=== PATIENT | female | born 1990 | race Caucasian/White ===

== ENCOUNTER 2020-05-13 04:49 | Emergency (ER) | payer BC ==
[2020-05-13 04:58] VITALS: TEMP 97.9
[2020-05-13] MEDS ORDERED: SODIUM CHLORIDE 0.9% 1,000 ML IV STA (05:06)
--- NOTE | 2020-05-13 05:07 | ED ---
Chest Pain HPI - General Chief Complaint: Chest Pain Stated Complaint: Chest Pain Time Seen by Provider: 05/13/20 04:52 Source: patient, family, RN notes reviewed, old records reviewed Mode of arrival: ambulatory - History of Present Illness Initial Comments: This is a 29-year-old female DF for evaluation patient is today for evaluation of chest pain patient is episodic chest pain and cough for a few months now. Had outpatient lab evaluation for possible abdominal Etiology. Patient the nonsmoker with no high blood pressure or cholesterol no diabetes. She has anterior chest pain, pain worse pain which she lays down, patient denying any travel history, no known significant sick contacts. No significant surgical history or medical history denies drugs or alcohol abuse. Patient does have a family history of heart disease patient is also experiencing Shortness of breath exertion. Patient does have current pain does admit to some shortness of breath and again symptoms are worse when she lies down MD Complaint: chest pain, other (sob) -: week(s) Onset: during rest, during exertion, awoke with symptoms Pain Location: epigastric Pain Radiation: back Severity: moderate Severity scale (1-10): 6 Quality: tightness, heaviness Consistency: intermittent Improves With: nothing Worsens With: exertion, inspiration, supine Context: recent illness Anginal Symptoms: diaphoresis, dyspnea Other Symptoms: cough Treatments Prior to Arrival: none - Related Data Home Medications Medication Instructions Recorded Confirmed Multivitamins, Thera [Multivitamin 1 tab PO DAILY 05/13/20 05/13/20 (formulary)] Turmeric Root Extract [Turmeric] 500 mg PO DAILY 05/13/20 05/13/20 Allergies Allergy/AdvReac Type Severity Reaction Status Date / Time No Known Allergies Allergy Verified 05/13/20 07:29 Review of Systems ROS Statement: Those systems with pertinent positive or pertinent negative responses have been documented in the HPI. ROS Other: All systems not noted in ROS Statement are negative. EKG Findings - EKG Comments: EKG Findings:: EKG is sinus rhythm 64 VA 150 QRS 82 QTC 406 Past Medical History Past Medical History: No Reported History History of Any Multi-Drug Resistant Organisms: None Reported Past Surgical History: No Surgical Hx Reported Past Psychological History: Anxiety Smoking Status: Never smoker Past Alcohol Use History: None Reported Past Drug Use History: None Reported General Exam General appearance: alert, in no apparent distress, anxious Head exam: Present: atraumatic, normocephalic, normal inspection Eye exam: Present: normal appearance, PERRL, EOMI. Absent: scleral icterus, conjunctival injection, periorbital swelling ENT exam: Present: normal exam, mucous membranes moist Neck exam: Present: normal inspection. Absent: tenderness, meningismus, lymphadenopathy Respiratory exam: Present: normal lung sounds bilaterally. Absent: respiratory distress, wheezes, rales, rhonchi, stridor Cardiovascular Exam: Present: regular rate, normal rhythm, normal heart sounds. Absent: systolic murmur, diastolic murmur, rubs, gallop, clicks GI/Abdominal exam: Present: soft, normal bowel sounds. Absent: distended, tenderness, guarding, rebound, rigid Extremities exam: Present: normal inspection, full ROM, normal capillary refill. Absent: tenderness, pedal edema, joint swelling, calf tenderness Back exam: Present: normal inspection Neurological exam: Present: alert, oriented X3, CN II-XII intact Psychiatric exam: Present: normal affect, normal mood Skin exam: Present: warm, dry, intact, normal color. Absent: rash Course Vital Signs 05/13/20 05/13/20 04:53 06:54 Temperature 97.9 F Pulse Rate 66 87 Respiratory 20 18 Rate Blood Pressure 153/85 130/78 O2 Sat by Pulse 100 98 Oximetry - Reevaluation(s) Reevaluation #1: Medical records reviewed Patient shortness of breath is significantly improved here in the emergency department arrest and comfortably currently Patient still complains of her main complaint is shortness of breath with laying flat Patient informed of results, questions answered feels good for discharge [facility] 29 [facility] DF for evaluation of chest pain. Chest pain has been going on for a few months no significant no-cost patient does have a CT of her chest which is negative here today. Patient will continue follow-up for further evaluation management Disposition Clinical Impression: Chest pain, Atypical chest pain Disposition: HOME SELF-CARE Condition: Good Instructions (If sedation given, give patient instructions): Chest Pain (ED) Is patient prescribed a controlled substance at d/c from ED?: No Referrals: Deya Dale MD [Primary Care Provider] - 1-2 days
[2020-05-13 05:32] LABS: Basophils % (A) 0 %; Eosinophils # (A) 0.1 k/uL (0-0.7); Eosinophils % (A) 2 %; HCT 42.9 % (34.0-46.0); HGB 14.4 gm/dL (11.4-16.0); Lymphocytes # (A) 1.9 k/uL (1.0-4.8); Lymphocytes % (A) 31 %; MCH 28.2 pg (25.0-35.0); MCHC 33.5 g/dL (31.0-37.0); MCV 84.1 fL (80.0-100.0); Mean Platelet Volume 9.5; Monocytes # (A) 0.5 k/uL (0-1.0); Monocytes % (A) 8 %; Neutrophils # (A) 3.4 k/uL (1.3-7.7); Neutrophils % (A) 57 %; Platelet Count 158 k/uL (150-450); RDW 12.9 % (11.5-15.5); WBC 5.9 k/uL (3.8-10.6)
[2020-05-13 05:40] LABS: ALT 13 U/L (4-34); AST 23 U/L (14-36); African American GFR (CKD) >90 (>60 ml/min/1.73 sqM); Albumin 4.4 g/dL (3.5-5.0); Alkaline Phosphatase 95 U/L (38-126); Anion Gap 5 mmol/L; Blood Urea Nitrogen 12 mg/dL (7-17); Calcium 9.3 mg/dL (8.4-10.2); Carbon Dioxide 27 mmol/L (22-30); Chloride 106 mmol/L (98-107); Creatine Kinase 72 U/L (30-135); Glucose 96 mg/dL (74-99); Magnesium 2.1 mg/dL (1.6-2.3); Non-African American GFR(CKD) >90 (>60 ml/min/1.73 sqM); Potassium 3.7 mmol/L (3.5-5.1); Sodium 138 mmol/L (137-145); Total Bilirubin 0.3 mg/dL (0.2-1.3); Total Protein 7.2 g/dL (6.3-8.2)
[2020-05-13 05:52] LABS: D-Dimer 0.28 mg/L FEU (<0.60); INR 0.9 (<1.2); Partial Thromboplastin Time 23.3 sec (22.0-30.0); Prothrombin Time 9.8 sec (9.0-12.0)
[2020-05-13 06:04] LABS: Creatine Kinase MB 0.4 ng/mL (0.0-2.4); Troponin I <0.012 ng/mL (0.000-0.034)
[2020-05-13 06:55] VITALS: BP 130/78; PULSE 87; RESP 18
--- NOTE | 2020-05-13 07:50 | CT ---
EXAM: CT Angiography Chest With Intravenous Contrast CLINICAL HISTORY: PE. Chest pressure. Cough. TECHNIQUE: Axial computed tomographic angiography images of the chest with intravenous contrast. CTDI is 14.17 mGy and DLP is 294.6 mGy-cm. This CT exam was performed using one or more of the following dose reduction techniques: automated exposure control, adjustment of the mA and/or kV according to patient size, and/or use of iterative reconstruction technique. MIP reconstructed images were created and reviewed. COMPARISON: No relevant prior studies available. FINDINGS: Pulmonary arteries: Unremarkable. No pulmonary embolism. Aorta: No acute findings. Lungs: Unremarkable. No mass. No consolidation. Pleural space: Unremarkable. No significant effusion. No pneumothorax. Heart: Unremarkable. No cardiomegaly. No significant pericardial effusion. Bones/joints: No acute fracture. No dislocation. Soft tissues: Unremarkable. Lymph nodes: Unremarkable. No enlarged lymph nodes. IMPRESSION: No PE. No focal consolidative process or pleural effusions. No CT evidence of Covid-19 infection.
== END 2020-05-13 08:10 | disposition home or self-care (01) ==
LOC: EC 04:49
DX: R07.89 Other chest pain (principal); R06.02 Shortness of breath; R05 Cough; Z82.49 Family history of ischemic heart disease and other diseases of the circulatory system
CPT/HCPCS: 36415; 93005; 85379; 83880; 80053; 82550; 82553; 83735; 84484; 85025; 85610; 85730; 71275; 99285; 96360; 96361 ×2; Q9967

== ENCOUNTER 2023-05-26 05:59 | Inpatient (IN) | payer OTHER ==
[2023-05-26] MEDS ORDERED: CARBOPROST TROMETHAMINE 250 MCG/ML 1 ML AMP IM PRN (06:18)
[2023-05-26] MEDS ORDERED: LIDOCAINE 0.5% (PF) 5 MG/ML (50 ML SDV) SQ PRN (06:18)
[2023-05-26] MEDS ORDERED: OXYTOCIN 10 UNIT/ML 1 ML VIAL IM PRN (06:18)
[2023-05-26] MEDS ORDERED: METHYLERGONOVINE 0.2 MG/ML 1 ML AMP IM PRN (06:18)
[2023-05-26] MEDS ORDERED: TERBUTALINE 1 MG/ML VIAL SQ PRN (06:18)
[2023-05-26] MEDS ORDERED: miSOPROStoL 200 MCG TAB PO PRN (06:18)
[2023-05-26] MEDS ORDERED: TRANEXAMIC 1,000 MG/100ML-NACL 1,000 MG in EMPTY BAG 1 BAG IV PRN (06:18)
[2023-05-26] MEDS: LACTATED RINGERS 1,000 ML IV SCH ×2 (06:23→19:55)
[2023-05-26 06:37] LABS: Basophils % (A) 0 %; Eosinophils # (A) 0.1 k/uL (0-0.7); Eosinophils % (A) 1 %; HCT 36.8 % (34.0-46.0); HGB 12.6 gm/dL (11.4-16.0); Lymphocytes # (A) 1.3 k/uL (1.0-4.8); Lymphocytes % (A) 13 %; MCH 29.4 pg (25.0-35.0); MCHC 34.3 g/dL (31.0-37.0); MCV 85.8 fL (80.0-100.0); Mean Platelet Volume 10.8; Monocytes # (A) 0.7 k/uL (0-1.0); Monocytes % (A) 7 %; Neutrophils # (A) 7.8 k/uL (1.3-7.7); Neutrophils % (A) 78 %; Platelet Count 116 k/uL (150-450); RBC 4.29 m/uL (3.80-5.40); RDW 14.3 % (11.5-15.5)
[2023-05-26] MEDS: OXYTOCIN 30 UNITS/500 ML NS 30 UNIT in SALINE 1 500ML.BAG IV SCH ×2 (06:40→20:18)
[2023-05-26] MEDS ORDERED: ROPIVACAINE 5 MG/ML 30 ML VIAL ONE (14:32)
[2023-05-26] MEDS ORDERED: SODIUM CHLORIDE 0.9% 250 ML BAG ONE (14:32)
[2023-05-26] MEDS ORDERED: fentaNYL (PF) 50 MCG/ML 5 ML AMP ONE (14:32)
[2023-05-26] MEDS ORDERED: diphenhydrAMINE 50 MG CAP PO PRN (18:31)
[2023-05-26] MEDS ORDERED: BENZOCAINE/MENTHOL SPRAY 1 GM/SPRAY AEROSOL TOPICAL PRN (18:31)
[2023-05-26] MEDS ORDERED: ACETAMINOPHEN TAB 325 MG TAB PO PRN (18:31)
[2023-05-26] MEDS ORDERED: diphenhydrAMINE 25 MG CAP PO PRN (18:31)
[2023-05-26] MEDS ORDERED: ZOLPIDEM 5 MG TAB PO PRN (18:31)
[2023-05-26] MEDS ORDERED: HYDROCORTISONE 2.5% RECTAL CREAM 30 GM TUBE RECTAL PRN (18:31)
[2023-05-26] MEDS ORDERED: diphenhydrAMINE 50 MG/ML 1 ML VIAL IVP PRN ×2 (18:31)
[2023-05-26] MEDS ORDERED: LANOLIN CREAM 5 GM TUBE TOPICAL PRN (18:31)
[2023-05-26] MEDS ORDERED: SIMETHICONE 80 MG CHEWABLE PO PRN (18:31)
[2023-05-26 18:36] VITALS: RESP 16
--- NOTE | 2023-05-26 18:43 | P.PROBDLV ---
Vaginal Delivery Note - . Vaginal Delivery Note: The patient is a [32]-year-old [2], para [1001] admitted at [39 2/7 ] weeks by good dating parameters. She is admitted [for induction of labor secondary to SGA] with all signs reassuring. On labor and delivery, she made very good progress to complete and [+1] station and began pushing. She had a normal spontaneous vaginal delivery of a viable [6 pound 12 ounce] baby [girl] with scores of [8] at one minute and [9] at five minutes, delivered in the [direct occiput anterior position]. Loose nuchal x 2 was delivered through the placenta was delivered spontaneously intact and was grossly normal with a grossly normal [eccentrically] inserted 3 vessel cord. [A first- degree midline laceration was noted after delivery and was repaired in standard fashion using 3-0 Vicryl repeat without difficulty.] Estimated blood loss for the case was approximately [100] mL. The bladder was drained for approximately 300 cc of clear yellow urine. There were no complications. All sponge, instrument and needle counts were correct. Both mother and infant are resting comfortably in recovery. Findings viable male delivered at 181, weight of 6 pounds 15 ounces
--- NOTE | 2023-05-26 18:44 | P.HPOB ---
History of Present Illness H&P Date: 05/26/23 Chief Complaint: IUP at 39 weeks, SGA 32-year-old at 39 weeks of that presents for induction of labor secondary to small for gestational age. On last ultrasound estimated weight was 15th percentile at 36 weeks. Patient has had routine prenat al care otherwise. This morning patient notes good movement occasional contractions denies vaginal bleeding or loss of fluid. On blood work this patient notes a blood type of O+, rubella status immune, hepatitis B surface engine negative, HIV negative, RPR is nonreactive, group B strep culture was negative. Patient did have noted gestational thrombocytopenia with this and platelets upon initial draw this morning were 116. 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 History of Any Multi-Drug Resistant Organisms: None Reported Past Surgical History: No Surgical Hx Reported Past Anesthesia/Blood Transfusion Reactions: No Reported Reaction Past Psychological History: Anxiety, Depression Additional Psychological History / Comment(s): PPD/PPA Smoking Status: Never smoker Past Alcohol Use History: None Reported Past Drug Use History: None Reported - Past Family History Father Family Medical History: No Reported History Medications and Allergies Home Medications Medication Instructions Recorded Confirmed Type Pnv No.154/Iron Fum/Folic Acid 1 capsule PO DAILY 05/26/23 05/26/23 History [ Plus Vitamin Tablet] Sennosides-Docusate Sodium 2 tablet PO DAILY 05/26/23 05/26/23 History [Senokot-S] methylPREDNISolone [Medrol Dose 4 mg PO DAILY 05/26/23 05/26/23 History Pack] Allergies Allergy/AdvReac Type Severity Reaction Status Date / Time No Known Allergies Allergy Verified 05/26/23 06:15 Exam Osteopathic Statement: *. No significant issues noted on an osteopathic structural exam other than those noted in the History and Physical/Consult. Vital Signs Temp Pulse Resp BP Pulse Ox 05/26/23 06:15 97.0 F L 97 17 143/82 97 Intake and Output 05/25/23 05/26/23 05/26/23 22:59 06:59 14:59 Other: Weight 93.44 kg Targeted physical exam is performed this date General is a well-nourished well- developed female in no acute distress, breathing is noted to be nonlabored, heart has a regular rate and rhythm, abdomen is gravid and appropriate for gestational age, on cervical exam she is 1/thick/-3 amniotomy is performed and thin meconium stained fluid is appreciated. heart tones are noted to be category 1 and she is [place] irregularly. Results Result Diagrams: 05/26/23 06:25 Abnormal Lab Results - Last 24 Hours (Table) 05/26/23 Range/Units 06:25 Plt Count 116 L (150-450) k/uL Neutrophils # 7.8 H (1.3-7.7) k/uL Assessment and Plan (1) 39 weeks gestation of Current Visit: Yes Status: Acute Code(s): Z3A.39 - 39 WEEKS GESTATION OF SNOMED Code(s): 56631933 (2) SGA (small for gestational age), , affecting care of mother, antepartum Current Visit: Yes Status: Acute Code(s): O36.5990 - MATERN CARE FOR OTH OR SUSP POOR FETL GRTH, UNSP TRI, UNSP SNOMED Code(s): 604942729 Plan: 32-year-old at 39 weeks of gestation presents for induction of labor. Pitocin induction of labor was begun per hospital protocol. Options for analgesia are discussed including Nubain and epidural. Patient does desire epidural when appropriate.
[2023-05-26] MEDS ORDERED: OXYTOCIN 30 UNITS/500 ML NS 30 UNIT in SALINE 1 500ML.BAG IV SCH (18:45)
[2023-05-26] MEDS: IBUPROFEN 600 MG TAB PO SCH ×2 (18:45→22:35)
[2023-05-26] MEDS: SENNOSIDES-DOCUSATE SODIUM 1 EACH TAB PO SCH (20:23)
[2023-05-27 07:34] VITALS: TEMP 97.9
[2023-05-27 07:35] LABS: Basophils % (A) 0 %; Eosinophils # (A) 0.1 k/uL (0-0.7); Eosinophils % (A) 1 %; HGB 11.8 gm/dL (11.4-16.0); Lymphocytes # (A) 1.5 k/uL (1.0-4.8); Lymphocytes % (A) 12 %; MCHC 33.8 g/dL (31.0-37.0); Mean Platelet Volume 10.8; Monocytes # (A) 0.9 k/uL (0-1.0); Monocytes % (A) 7 %; Neutrophils # (A) 9.4 k/uL (1.3-7.7); Neutrophils % (A) 77 %; Platelet Count 100 k/uL (150-450); RBC 4.07 m/uL (3.80-5.40); RDW 14.5 % (11.5-15.5); WBC 12.2 k/uL (3.8-10.6)
[2023-05-27] MEDS: SENNOSIDES-DOCUSATE SODIUM 1 EACH TAB PO SCH (08:24)
[2023-05-27] MEDS: IBUPROFEN 600 MG TAB PO SCH ×2 (08:24→15:46)
[2023-05-27] MEDS ORDERED: PRENATAL VIT-IRON-FOLIC ACID 1 EACH TABLET PO SCH (09:00)
[2023-05-27] MEDS ORDERED: SENNOSIDES-DOCUSATE SODIUM 1 EACH TAB PO SCH (09:00)
--- NOTE | 2023-05-27 11:47 | P.DS ---
Providers Date of admission: 05/26/23 05:59 Expected date of discharge: 05/27/23 Attending physician: Ernestina Toney Primary care physician: Stated None - Discharge Diagnosis(es) (1) 39 weeks gestation of Current Visit: Yes Status: Acute (2) SGA (small for gestational age), , affecting care of mother, antepartum Current Visit: Yes Status: Acute (3) Status post normal vaginal delivery Current Visit: Yes Status: Acute (4) Obstetrical laceration, first degree Current Visit: Yes Status: Acute Hospital Course: 32-year-old G2 now P2 that presented to labor and delivery at 39 2/7 weeks for induction of labor secondary to SGA. Patient had been receiving routine care with the only complication noted of SGA. On last ultrasound was noted to be 15th percentile. Patient was admitted to labor and delivery and Pitocin induction of labor was begun. Patient underwent amniotomy and thin meconium stained fluid was appreciated. Patient made slow progress through labor and eventually noting cervical change and requesting epidural. Epidural was placed without difficulty by the anesthesia department. Patient made both good progress toward complete. Once patient was noted to be completely dilated she began pushing and had a normal spontaneous vaginal delivery of a viable male delivered at 181, weight of 6 pounds 15 ounces. Patient's course has been uneventful. On this day #1 she is ambulating and voiding without difficulty. She is tolerating a regular diet without nausea or vomiting. She states her pain is well-controlled. She is tearful this morning depression is discussed with patient in detail. Questions were answered. Patient states she is doing okay. Patient Condition at Discharge: Good Plan - Discharge Summary New Discharge Prescriptions: No Action methylPREDNISolone [Medrol Dose Pack] 4 mg PO DAILY Sennosides-Docusate Sodium [Senokot-S] 2 tablet PO DAILY Pnv No.154/Iron Fum/Folic Acid [ Plus Vitamin Tablet] 1 capsule PO DAILY Discharge Medication List Pnv No.154/Iron Fum/Folic Acid [ Plus Vitamin Tablet] 1 capsule PO DAILY 05/26/23 [History] Sennosides-Docusate Sodium [Senokot-S] 2 tablet PO DAILY 05/26/23 [History] methylPREDNISolone [Medrol Dose Pack] 4 mg PO DAILY 05/26/23 [History] Follow up Appointment(s)/Referral(s): Ernestina Toney DO [Doctor of Osteopathic Medicine] - 6 Weeks Patient Instructions/Handouts: Vaginal Delivery (DC), Vaginal Delivery (GEN) Activity/Diet/Wound Care/Special Instructions: No tub baths or intercourse until 6 weeks . depression screening/concerns are discussed with patient and she states she will call with any concerns. Patient is urged to reach out with concerns and be seen in the office. Routine visit is to be scheduled at 6 weeks. Rzjc-vnc-ejqroyh ibuprofen 600 mg or 3 tablets every 6 hours as needed for pain. Discharge Disposition: HOME SELF-CARE
[2023-05-27 15:47] VITALS: BP 123/79; PULSE 76
== END 2023-05-27 18:53 | disposition home or self-care (01) | DRG 806 ==
LOC: 4FBP 05:59
PROVIDERS: ADMIT Obstetrics & Gynecology Obstetrics; ATTEND Obstetrics & Gynecology Obstetrics
PROC: 0HQ9XZZ Repair Perineum Skin, External Approach (ICD-10-PCS; principal; 2023-05-26)
PROC: 10E0XZZ Delivery of Products of Conception, External Approach (ICD-10-PCS; principal; 2023-05-26)
PROC: 10907ZC Drainage of Amniotic Fluid, Therapeutic from Products of Conception, Via Natural or Artificial Opening (ICD-10-PCS; 2023-05-26)
PROC: 3E033VJ Introduction of Other Hormone into Peripheral Vein, Percutaneous Approach (ICD-10-PCS; 2023-05-26)
DX: O36.5930 Maternal care for other known or suspected poor fetal growth, third trimester, not applicable or unspecified (principal); O99.12 Other diseases of the blood and blood-forming organs and certain disorders involving the immune mechanism complicating childbirth; Z37.0 Single live birth; D69.59 Other secondary thrombocytopenia; O99.344 Other mental disorders complicating childbirth; O99.345 Other mental disorders complicating the puerperium; F53.0 Postpartum depression; Z28.310 Unvaccinated for COVID-19; F41.9 Anxiety disorder, unspecified; O69.81X0 Labor and delivery complicated by cord around neck, without compression, not applicable or unspecified; O70.0 First degree perineal laceration during delivery; O77.0 Labor and delivery complicated by meconium in amniotic fluid; Z3A.39 39 weeks gestation of pregnancy; Z79.899 Other long term (current) drug therapy
CPT/HCPCS: 85025; 86850; 86900; 86901

== ENCOUNTER 2024-05-25 15:47 | Emergency (ER) | payer OTHER ==
--- NOTE | 2024-05-25 16:16 | ED ---
Back Pain HPI - General Chief Complaint: Back Pain/Injury Stated Complaint: back pain Time Seen by Provider: 05/25/24 16:15 Source: patient, RN notes reviewed Limitations: no limitations - History of Present Illness Initial Comments: This is a 33-year-old female no significant medical history presenting to the emergency department for complaint of lumbar back pain. She states that last Thursday patient was outside when she slipped on the ice landing onto her lower back. She denies hitting her head or loss of consciousness at the time of the injury or other injuries. States that over the past few days her symptoms have gotten better however last night symptoms over her lower back worsened with radiation into the right anterior groin described as a sharp sensation. She d enies any loss of bladder bowel continence or saddle seizures after the injury. States that she has taken Aleve today with minimal relief. MD Complaint: fall -: days(s) - Related Data Home Medications Medication Instructions Recorded Confirmed Pnv No.154/Iron Fum/Folic Acid 1 capsule PO DAILY 05/26/23 05/26/23 [ Plus Vitamin Tablet] Sennosides-Docusate Sodium 2 tablet PO DAILY 05/26/23 05/26/23 [Senokot-S] methylPREDNISolone [Medrol Dose 4 mg PO DAILY 05/26/23 05/26/23 Pack] Previous Rx's Medication Instructions Recorded Lidocaine 5% Patch [Lidoderm] 1 patch TOPICAL DAILY #14 patch 05/25/24 Allergies Allergy/AdvReac Type Severity Reaction Status Date / Time No Known Allergies Allergy Verified 05/25/24 15:53 Review of Systems ROS Statement: Those systems with pertinent positive or pertinent negative responses have been documented in the HPI. ROS Other: All systems not noted in ROS Statement are negative. 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 Absent: tenderness, meningismus, lymphadenopathy Respiratory exam: Present: normal lung sounds bilaterally. Absent: respiratory distress, wheezes, rales, rhonchi, stridor Cardiovascular Exam: Present: regular rate, normal rhythm, normal heart sounds. Absent: systolic murmur, diastolic murmur, rubs, gallop, clicks GI/Abdominal exam: Present: soft, normal bowel sounds. Absent: distended, tenderness, guarding, rebound, rigid Back exam: Present: normal inspection, tenderness (lumbar mid back and lateral right to palpation with no overlying skin changes). Absent: full ROM, CVA tenderness (R), CVA tenderness (L) Neurological exam: Present: alert, oriented X3, CN II-XII intact Course Vital Signs 05/25/24 15:50 Temperature 98.1 F Pulse Rate 92 Respiratory 16 Rate Blood Pressure 165/110 O2 Sat by Pulse 95 Oximetry Medical Decision Making - Medical Decision Making Was pt. sent in by a medical professional or institution (, PA, REAL ESTATE LOAN OFFICER, urgent care, hospital, or long-term...) When possible be specific @ -No Did you speak to anyone other than the patient for history (EMS, parent, family, police, friend...)? What history was obtained from this source @ -No Did you review nursing and triage notes (agree or disagree)? Why? @ -I reviewed and agree with nursing and triage notes Were old charts reviewed (outside hosp., previous admission, EMS record, old EKG, old radiological studies, urgent care reports/EKG's, long-term records)? Report findings @ -No old charts were reviewed Differential Diagnosis (chest pain, altered mental status, abdominal pain women, abdominal pain men, vaginal bleeding, weakness, fever, dyspnea, syncope, headache, dizziness, GI bleed, back pain, seizure, CVA, palpatations, mental health, musculoskeletal)? @ -Differential Back Pain: Strain, zoster, cauda equina syndrome, epidural abscess, vertebral osteomyelitis, discitis, fracture, subluxation, disc herniation, DJD, spinal stenosis, dissection, AAA, pancreatitis, peptic ulcer disease, pyelonephritis, kidney stone, this is not meant to be an all-inclusive list. EKG interpreted by me (3pts min.). @ -None X-rays interpreted by me (1pt min.). @ -X-ray of the lumbar spine and AP pelvis no acute osseous abnormality CT interpreted by me (1pt min.). @ -None done U/S interpreted by me (1pt. min.). @ -None done What testing was considered but not performed or refused? (CT, X-rays, U/S, labs)? Why? @ -None What meds were considered but not given or refused? Why? @ -None Did you discuss the management of the patient with other professionals (professionals i.e. DrDoug, PA, REAL ESTATE LOAN OFFICER, lab, RT, psych nurse, social contact worker, mica parts sprayer, teacher, sewage reticulation drafting officer, correctional counselor/case manager)? Give summary @ -No Was smoking cessation discussed for >3mins.? @ -No Was critical care preformed (if so, how long)? @ -No Were there social determinants of health that impacted care today? How? (Homelessness, low income, unemployed, alcoholism, drug addiction, transportation, low edu. Level, literacy, decrease access to med. care, longterm, rehab)? @ -No Was there de-escalation of care discussed even if they declined (Discuss DNR or withdrawal of care, Hospice)? DNR status @ -No What co-morbidities impacted this encounter? (DM, HTN, Smoking, COPD, CAD, Cancer, CVA, ARF, Chemo, Hep., AIDS, mental health diagnosis, sleep apnea, morbid obesity)? @ -None Was patient admitted / discharged? Hospital course, mention meds given and route, prescriptions, significant lab abnormalities, going to OR and other pertinent info. @ -Discharge. 33-year-old male with a lumbar back pain. Evaluation patient is resting in a wheelchair no signs acute distress. On evaluation to no point tenderness of the lumbar spine lateral on the right-hand side with no overlying skin changes. There is radiation of pain spreading laterally over the anterior right hip. There are no red flag findings concerning for cauda equina. Patient is provided with dose of Tylenol. X-ray lumbar spine and AP pelvis no acute abnormality is noted. Patient has a prescription for lidocaine patches instructed continue Tylenol Motrin and supportive treatment at home. Case discussed with Dr. Crawley Undiagnosed new problem with uncertain prognosis? @ -No Drug Therapy requiring intensive monitoring for toxicity (Heparin, Nitro, Insulin, Cardizem)? @ -No Were any procedures done? @ -No Diagnosis/symptom? @ -Fall, lumbar back pain Acute, or Chronic, or Acute on Chronic? @ -acute Uncomplicated (without systemic symptoms) or Complicated (systemic symptoms)? @ -uncomplicated Side effects of treatment? @ -No Exacerbation, Progression, or Severe Exacerbation? @ -No Poses a threat to life or bodily function? How? (Chest pain, [place], HI, pneumonia, PE, COPD, DKA, ARF, appy, cholecystitis, CVA, Diverticulitis, Homicidal, Suicidal, threat to staff... and all critical care pts) @ -No Disposition Clinical Impression: Lumbar back pain Disposition: HOME SELF-CARE Condition: Good Instructions (If sedation given, give patient instructions): Acute Low Back Pain (ED) Additional Instructions: Please return to the Emergency Department if symptoms worsen or any other concerns. Prescriptions: Lidocaine 5% Patch [Lidoderm] 1 patch TOPICAL DAILY #14 patch Is patient prescribed a controlled substance at d/c from ED?: No Referrals: Deya Dale MD [Primary Care Provider] - 1-2 days Time of Disposition: 17:09
[2024-05-25] MEDS: ACETAMINOPHEN TAB 500 MG TAB PO STA (16:49)
--- NOTE | 2024-05-25 16:49 | XR ---
EXAMINATION TYPE: XR pelvis AP view DATE OF EXAM: 05/25/2024 4:41 PM INDICATION: Patient age:Female; 33 years old; Reason for study: fall, pain; PHH. pain COMPARISON: None TECHNIQUE: The pelvis was examined in a single projection. FINDINGS: There is no evidence of fracture or dislocation. There is no soft tissue abnormality. No a bnormal calcifications are present. IMPRESSION: No acute osseous pathology. [facility], , 05/25/2024 4:47 PM
[2024-05-25] MEDS: LIDOCAINE 4% PATCH TOPICAL ONE (16:50)
--- NOTE | 2024-05-25 16:50 | XR ---
EXAMINATION TYPE: XR lumbar spine 2 or 3V DATE OF EXAM: 05/25/2024 CLINICAL HISTORY: pain TECHNIQUE: Three views of the lumbar spine are submitted. COMPARISON: None. FINDINGS: There are 5 lumbar type vertebral bodies identified. The lumbar spine shows satisfactory alignment w ithout evidence of acute fracture or dislocation. Vertebral body heights are within normal limits. Disc spaces are within normal limits. The overlying soft tissue appears unremarkable. IMPRESSION: No acute fracture or dislocation is seen in the lumbar spine. [facility], , 05/25/2024 4:47 PM
[2024-05-25 17:21] VITALS: BP 146/89; PULSE 86; RESP 18; TEMP 98
== END 2024-05-25 17:20 | disposition home or self-care (01) ==
LOC: EC 15:47
DX: M54.50 Low back pain, unspecified (principal); W00.0XXA Fall on same level due to ice and snow, initial encounter
CPT/HCPCS: 72100; 72170; 99283

== ENCOUNTER 2024-11-06 13:16 | Emergency (ER) | payer OTHER ==
[2024-11-06 13:33] VITALS: BP 136/87; PULSE 98; RESP 18; TEMP 98
--- NOTE | 2024-11-06 15:40 | ED ---
General Adult HPI - General Chief complaint: Recheck/Abnormal Lab/Rx Stated complaint: R eye swelling Time Seen by Provider: 11/06/24 15:40 Source: patient, RN notes reviewed Mode of arrival: ambulatory Limitations: no limitations - History of Present Illness Initial comments: 34-year-old female presenting for right eye swelling x 2 days. States she was diagnosed with chalazion and placed on Keflex and erythromycin ointment. Patient is currently breast-feeding. States she woke up today with a worsening swelling and a red rash behind both knees, thighs and on the ventral aspect of the left elbow. States she has history of Sjogren's and is in the process of being diagnosed with lupus. Denies fevers. No vision changes. No difficulty breathing or swallowing. No lip or tongue swelling. - Related Data Home Medications Medication Instructions Recorded Confirmed Pnv No.154/Iron Fum/Folic Acid 1 capsule PO DAILY 05/26/23 05/26/23 [ Plus Vitamin Tablet] Sennosides-Docusate Sodium 2 tablet PO DAILY 05/26/23 05/26/23 [Senokot-S] methylPREDNISolone [Medrol Dose 4 mg PO DAILY 05/26/23 05/26/23 Pack] Previous Rx's Medication Instructions Recorded Lidocaine 5% Patch [Lidoderm] 1 patch TOPICAL DAILY #14 patch 05/25/24 Allergies Allergy/AdvReac Type Severity Reaction Status Date / Time No Known Allergies Allergy Verified 11/06/24 13:33 Review of Systems ROS Statement: Those systems with pertinent positive or pertinent negative responses have been documented in the HPI. ROS Other: All systems not noted in ROS Statement are negative. Past Medical History Past Medical History: No Reported History Additional Past Medical History / Comment(s): low platelets History of Any Multi-Drug Resistant Organisms: None Reported Past Surgical History: No Surgical Hx Reported Past Anesthesia/Blood Transfusion Reactions: No Reported Reaction Past Psychological History: Anxiety, Depression Smoking Status: Never smoker Past Alcohol Use History: None Reported Past Drug Use History: None Reported - Past Family History Father Family Medical History: No Reported History General Exam Limitations: no limitations General appearance: alert, in no apparent distress Head exam: Present: atraumatic, normocephalic, normal inspection Eye exam: Present: PERRL, EOMI. Absent: normal appearance (Mild right-sided periorbital edema and erythema. Scant amount of purulence in right inner canthus. No proptosis or conjunctival injection), scleral icterus, conjunctival injection, periorbital swelling ENT exam: Present: normal exam, mucous membranes moist Neck exam: Present: normal inspection. Absent: tenderness, meningismus, lymphadenopathy Respiratory exam: Present: normal lung sounds bilaterally. Absent: respiratory distress, wheezes, rales, rhonchi, stridor Cardiovascular Exam: Present: regular rate, normal rhythm, normal heart sounds. Absent: systolic murmur, diastolic murmur, rubs, gallop, clicks Course Vital Signs 11/06/24 13:29 Temperature 98 F Pulse Rate 98 Respiratory 18 Rate Blood Pressure 136/87 O2 Sat by Pulse 95 Oximetry Medical Decision Making - Medical Decision Making Was pt. sent in by a medical professional or institution (, PA, NETWORK LIAISON, urgent care, hospital, or detention...) When possible be specific @ -Sent from urgent care Did you speak to anyone other than the patient for history (EMS, parent, family, police, friend...)? What history was obtained from this source @ -No Did you review nursing and triage notes (agree or disagree)? Why? @ -I reviewed and agree with nursing and triage notes Were old charts reviewed (outside hosp., previous admission, EMS record, old EKG, old radiological studies, urgent care reports/EKG's, detention records)? Report findings @ -No old charts were reviewed Differential Diagnosis (chest pain, altered mental status, abdominal pain women, abdominal pain men, vaginal bleeding, weakness, fever, dyspnea, syncope, headache, dizziness, GI bleed, back pain, seizure, CVA, palpatations, mental health, musculoskeletal)? @ -Periorbital cellulitis, orbital cellulitis, conjunctivitis, allergic reaction, contact dermatitis EKG interpreted by me (3pts min.). @ -None X-rays interpreted by me (1pt min.). @ -None done CT interpreted by me (1pt min.). @ -None done U/S interpreted by me (1pt. min.). @ -None done What testing was considered but not performed or refused? (CT, X-rays, U/S, labs)? Why? @ -None What meds were considered but not given or refused? Why? @ -None Did you discuss the management of the patient with other professionals (professionals i.e. , PA, NETWORK LIAISON, lab, RT, psych nurse, social studies department chair, material coordinator, teacher, parcel post officer, complex case manager)? Give summary @ -No Was smoking cessation discussed for >3mins.? @ -No Was critical care preformed (if so, how long)? @ -No Were there social determinants of health that impacted care today? How? (Homelessness, low income, unemployed, alcoholism, drug addiction, transportation, low edu. Level, literacy, decrease access to med. care, [facility], rehab)? @ -No Was there de-escalation of care discussed even if they declined (Discuss DNR or withdrawal of care, Hospice)? DNR status @ -No What co-morbidities impacted this encounter? (DM, HTN, Smoking, COPD, CAD, Cancer, CVA, ARF, Chemo, Hep., AIDS, mental health diagnosis, sleep apnea, morbid obesity)? @ -None Was patient admitted / discharged? Hospital course, mention meds given and route, prescriptions, significant lab abnormalities, going to OR and other pertinent info. @ -Discharge. 34-year-old female presenting for right eye swelling x 2 days. There is mild periorbital edema and erythema to right eye. No proptosis or direct eye redness/pain. Patient does have diffuse raised erythematous plaques throughout the body. Patient was provided with dose of IV Benadryl. Lab work unremarkable. Advised to continue Keflex as prescribed and take [id number] Benadryl. Appropriate return precautions and supportive care/follow-up care discussed. Case was discussed with my ED attending Dr. Crawley Undiagnosed new problem with uncertain prognosis? @ -No Drug Therapy requiring intensive monitoring for toxicity (Heparin, Nitro, Insuli n, Cardizem)? @ -No Were any procedures done? @ -No Diagnosis/symptom? @ -Right periorbital cellulitis Acute, or Chronic, or Acute on Chronic? @ -Acute Uncomplicated (without systemic symptoms) or Complicated (systemic symptoms)? @ -Uncomplicated Side effects of treatment? @ -No Exacerbation, Progression, or Severe Exacerbation? @ -No Poses a threat to life or bodily function? How? (Chest pain, [place], CA, pneumonia, PE, COPD, DKA, ARF, appy, cholecystitis, CVA, Diverticulitis, Homicidal, Suicidal, threat to staff... and all critical care pts) @ -Not at this time - Lab Data Result diagrams: 11/06/24 15:38 11/06/24 15:38 Lab Results 11/06/24 11/06/24 Range/Units 15:38 15:38 WBC 9.29 (4.50-10.00) 10*3/uL RBC 5.24 H (4.10-5.20) 10*6/uL Hgb 14.3 (12.0-15.0) g/dL Hct 42.9 (37.2-46.3) % MCV 81.9 (80.0-97.0) fL MCH 27.3 (27.0-32.0) pg MCHC 33.3 (32.0-37.0) g/dL Plt Count 197 (140-440) 10*3/uL MPV 11.5 (9.5-12.2) fL Immature Gran % (Auto) 0.2 % Neutrophils % 76.2 % Lymphocytes % 14.2 % Monocytes % 8.0 % Eosinophils % 1.1 % Basophils % 0.3 % Immature Gran # 0.02 (0.00-0.04) 10*3/uL Neutrophils # 7.08 (1.80-7.70) 10*3/uL Lymphocytes # 1.32 (0.90-5.00) 10*3/uL Monocytes # 0.74 (0.20-1.00) 10*3/uL Eosinophils # 0.10 (0.04-0.35) 10*3/uL Basophils # 0.03 (0.00-0.10) 10*3/uL Sodium 137 (137-145) mmol/L Potassium 4.8 (3.5-5.1) mmol/L Chloride 102 (98-107) mmol/L Carbon Dioxide 25 (22-30) mmol/L Anion Gap 10 mmol/L BUN 18 H (7-17) mg/dL Creatinine 0.60 (0.52-1.04) mg/dL Est GFR (CKD-EPI)AfAm >90 (>60 ml/min/1.73 sqM) Est GFR (CKD-EPI)NonAf >90 (>60 ml/min/1.73 sqM) Glucose 88 (74-99) mg/dL Calcium 9.9 (8.4-10.2) mg/dL Total Bilirubin 0.4 (0.2-1.3) mg/dL AST 28 (14-36) U/L ALT 20 (4-34) U/L Alkaline Phosphatase 104 (38-126) U/L Total Protein 7.2 (6.3-8.2) g/dL Albumin 4.4 (3.5-5.0) g/dL Disposition Clinical Impression: Periorbital cellulitis of right eye Disposition: HOME SELF-CARE Condition: Stable Instructions (If sedation given, give patient instructions): Periorbital Cellulitis in Adults (ED) Additional Instructions: Take Keflex as prescribed. Take Benadryl [id number] every 6 hours for your rash. Please return to the Emergency Department if symptoms worsen or any other concerns. Is patient prescribed a controlled substance at d/c from ED?: No Referrals: Deya Dale MD [Primary Care Provider] - 1-2 days Time of Disposition: 17:37
[2024-11-06 16:03] LABS: Basophils # (A) 0.03 10*3/uL (0.00-0.10); Basophils % (A) 0.3 %; Eosinophils # (A) 0.10 10*3/uL (0.04-0.35); Eosinophils % (A) 1.1 %; HCT 42.9 % (37.2-46.3); HGB 14.3 g/dL (12.0-15.0); Lymphocytes # (A) 1.32 10*3/uL (0.90-5.00); Lymphocytes % (A) 14.2 %; MCH 27.3 pg (27.0-32.0); MCHC 33.3 g/dL (32.0-37.0); MCV 81.9 fL (80.0-97.0); Monocytes # (A) 0.74 10*3/uL (0.20-1.00); Monocytes % (A) 8.0 %; Neutrophils # (A) 7.08 10*3/uL (1.80-7.70); Neutrophils % (A) 76.2 %; Platelet Count 197 10*3/uL (140-440); RBC 5.24 10*6/uL (4.10-5.20); RDW 13.8 % (11.5-14.5); WBC 9.29 10*3/uL (4.50-10.00)
[2024-11-06 16:18] LABS: ALT 20 U/L (4-34); AST 28 U/L (14-36); African American GFR (CKD) >90 (>60 ml/min/1.73 sqM); Albumin 4.4 g/dL (3.5-5.0); Alkaline Phosphatase 104 U/L (38-126); Anion Gap 10 mmol/L; Blood Urea Nitrogen 18 mg/dL (7-17); Calcium 9.9 mg/dL (8.4-10.2); Carbon Dioxide 25 mmol/L (22-30); Chloride 102 mmol/L (98-107); Glucose 88 mg/dL (74-99); Non-African American GFR(CKD) >90 (>60 ml/min/1.73 sqM); Potassium 4.8 mmol/L (3.5-5.1); Sodium 137 mmol/L (137-145); Total Protein 7.2 g/dL (6.3-8.2)
[2024-11-06] MEDS: diphenhydrAMINE 50 MG/ML 1 ML VIAL IVP STA (17:49)
== END 2024-11-06 18:16 | disposition home or self-care (01) ==
LOC: EC 13:16
DX: L03.213 Periorbital cellulitis (principal)
CPT/HCPCS: 36415; 80053; 85652; 85025; 99283; 96374; J1200